=== PATIENT | female | born 1965 | race Caucasian/White ===

== ENCOUNTER 2017-12-03 01:52 | Emergency (ER) | payer MEDICAID ==
[2017-12-03] MEDS: METHYLPREDNISOLONE 125 MG INJ IM (02:24)
[2017-12-03] MEDS: IPRATROPIUM (NEB) 0.5 MG/2.5 ML AMP NEB (02:27)
[2017-12-03] MEDS: ALBUTEROL 0.5% (NEB) 2.5 MG/0.5 ML AMP INH (02:27)
== END 2017-12-03 03:49 | disposition home or self-care (01) ==
LOC: FTE 01:52
DX: J20.9 Acute bronchitis, unspecified (principal); J45.901 Unspecified asthma with (acute) exacerbation
CPT/HCPCS: 94644; 94664; 96372; 99284-25